=== PATIENT | female | born 1995 | race Caucasian/White ===

== ENCOUNTER 2017-03-22 01:48 | Emergency (ER) | payer BC ==
[~2017-03-22] VITALS: Ht 154.9 cm; Wt 90.9 kg
[~2017-03-22 01:48] MED LIST: AMOXICILLIN 50500 MG PO; CLEOCIN HC150 MG/CAP PO; NO HOME MEDICATIONS
[2017-03-22 01:53] VITALS: BP 146/86; PULSE 89
[2017-03-22] MEDS ORDERED: BACTRIM DS 8001 TAB PO (02:16)
[2017-03-22 03:03] VITALS: TEMP 97.6
== END 2017-03-22 03:03 | disposition home or self-care (01) ==
LOC: COL.ER 01:48
DX: L03.90 Cellulitis, unspecified (principal)
CPT/HCPCS: J0696

== ENCOUNTER 2017-04-23 05:50 | Emergency (ER) | payer BC ==
[~2017-04-23] VITALS: Ht 160 cm; Wt 88.0 kg
[~2017-04-23 05:50] MED LIST changes: +BACTRIM DS 8001 TAB PO
[2017-04-23 07:41] LABS: BASO # 0.1 (0.0-0.2); BASO % 0.9 % (0.0-2.0); EOS % 0.4 % (0-4.0); GRAN # 3.1 (1.4-6.5); GRAN % 57.3 % (42.2-75.2); HEMATOCRIT 43.1 % (37.0-47.0); HEMOGLOBIN 14.6 g/dl (12.5-16.0); LYMPH # 1.7 (1.2-3.4); LYMPH % 31.9 % (20.0-51.0); MEAN CELL VOLUME 87 fl (80.0-100.0); MEAN CORPUSCULAR HEMOGLOBIN 29 pg (27.0-31.0); MEAN CORPUSCULAR HGB CONC 34 g/dl (33.0-37.0); MEAN PLATELET VOLUME 10.3 fl (7.4-10.4); MONO # 0.5 (0.1-0.6); MONO % 9.3 % (1.7-9.3); PLATELET COUNT 277 K/mm3 (130-400); RED BLOOD COUNT 4.98 M/mm3 (4.10-5.30); REDCELL DISTRIBUTION WIDTH-CV 12.5 % (11.5-14.5)
[2017-04-23 07:44] LABS: COLLECTION METHOD CLEAN CATCH
[2017-04-23 07:50] LABS: ALANINE AMINOTRANSFERASE 31 U/L (9-52); ALBUMIN 5.2 gm/dL (3.5-5.0); ALCOHOL(ethanol),MEDICAL 62 mg/dL; ALKALINE PHOSPHATASE 100 U/L (50-136); ANION GAP 15 mmol/L (7-16); AST,SGOT 20 U/L (15-37); BILIRUBIN,TOTAL 0.3 mg/dL (0.0-1.0); BLOOD UREA NITROGEN 11 mg/dL (7-17); CALCIUM 9.4 mg/dL (8.4-10.2); CARBON DIOXIDE 22 mmol/L (22-30); CHLORIDE 105 mmol/L (98-107); CREATININE, serum 0.59 mg/dL (0.52-1.25); GLUCOSE 109 mg/dL (74-106); MAGNESIUM 2.2 mg/dL (1.6-2.3); PHOSPHOROUS 3.3 mg/dL (2.5-4.5); POTASSIUM 3.6 mmol/L (3.4-5.0); SALICYLATE 3.5 mg/dL; SODIUM 142 mmol/L (137-145); TOTAL PROTEIN 8.5 gm/dL (6.4-8.2)
[2017-04-23 07:51] LABS: ACETAMINOPHEN < 10 ug/mL (10-30)
[2017-04-23 07:52] LABS: MUCOUS Present /lpf; PH 5 (5-8); URINE APPEARANCE Hazy; URINE BACTERIA None Seen /hpf; URINE BILIRUBIN Negative (NEGATIVE); URINE BLOOD Negative (NEGATIVE); URINE COLOR Yellow; URINE GLUCOSE Negative (NEGATIVE); URINE KETONE 1+ (NEGATIVE); URINE LEUKOCYTE ESTERASE Negative (NEGATIVE); URINE NITRATE Negative (NEGATIVE); URINE PROTEIN(semi-quant) 3+ (NEGATIVE); URINE RBC None Seen /hpf; URINE UROBILINOGEN Negative (NEGATIVE)
[2017-04-23 08:45] LABS: TRICYCLIC ANTIDEPRESS URINE NEGATIVE
[2017-04-23 09:13] VITALS: TEMP 97.4
[2017-04-23 10:00] VITALS: BP 146/89; PULSE 99
[2017-04-24] MEDS ORDERED: CEPHALEXIN500 M1 PO (11:01)
[2017-04-24] MEDS ORDERED: DOXYCYCLINE 10100 MG PO (11:01)
[2017-04-24] MEDS ORDERED: NORCO 325 MG-51 TAB PO (11:01)
== END 2017-04-23 10:08 | disposition home or self-care (01) ==
LOC: COL.ER 05:50
PROVIDERS: Emergency Medicine
DX: S61.512A Laceration without foreign body of left wrist, initial encounter (principal); F32.9 Major depressive disorder, single episode, unspecified; Z23 Encounter for immunization; X78.9XXA Intentional self-harm by unspecified sharp object, initial encounter

== ENCOUNTER 2017-04-24 09:39 | Emergency (ER) | payer BC ==
[~2017-04-24] VITALS: Ht 154.9 cm; Wt 87.7 kg
[2017-04-24 09:55] VITALS: BP 128/69; PULSE 83; TEMP 98.1
[2017-04-24] MEDS ORDERED: DOXYCYCLINE 10100 MG PO (11:01)
[2017-04-24] MEDS ORDERED: NORCO 325 MG-51 TAB PO (11:01)
[2017-04-24] MEDS ORDERED: CEPHALEXIN500 M1 PO (11:01)
== END 2017-04-24 12:03 | disposition home or self-care (01) ==
LOC: COL.ER 09:39
DX: S51.812D Laceration without foreign body of left forearm, subsequent encounter (principal)
CPT/HCPCS: J1170; J1885; J2550

== ENCOUNTER 2017-05-06 09:33 | Emergency (ER) | payer BC ==
[~2017-05-06 09:33] MED LIST changes: +CEPHALEXIN500 M1 PO; +DOXYCYCLINE 10100 MG PO; +NORCO 325 MG-51 TAB PO
[2017-05-06 09:42] VITALS: BP 132/80; PULSE 79; TEMP 98
== END 2017-05-06 09:50 | disposition home or self-care (01) ==
LOC: COL.ER 09:33
DX: S61.512D Laceration without foreign body of left wrist, subsequent encounter (principal)

== ENCOUNTER 2017-10-13 11:13 | Emergency (ER) | payer BC ==
[~2017-10-13] VITALS: Ht 157.5 cm; Wt 93.1 kg
[2017-10-13 11:18] VITALS: TEMP 98.8
[2017-10-13 11:59] LABS: BASO % 0.3 % (0.0-2.0); EOS % 0.1 % (0-4.0); GRAN # 7.9 (1.4-6.5); GRAN % 75.2 % (42.2-75.2); HEMATOCRIT 43.3 % (37.0-47.0); HEMOGLOBIN 14.8 g/dl (12.5-16.0); LYMPH # 1.9 (1.2-3.4); LYMPH % 18.5 % (20.0-51.0); MEAN CELL VOLUME 84 fl (80.0-100.0); MEAN CORPUSCULAR HEMOGLOBIN 29 pg (27.0-31.0); MEAN CORPUSCULAR HGB CONC 34 g/dl (33.0-37.0); MEAN PLATELET VOLUME 10.2 fl (7.4-10.4); MONO # 0.6 (0.1-0.6); MONO % 5.4 % (1.7-9.3); PLATELET COUNT 327 K/mm3 (130-400); RED BLOOD COUNT 5.13 M/mm3 (4.10-5.30); REDCELL DISTRIBUTION WIDTH-CV 12.4 % (11.5-14.5)
[2017-10-13 12:09] LABS: CALCIUM 9.7 mg/dL (8.4-10.2); CREATININE, serum 0.64 mg/dL (0.52-1.25); POTASSIUM 3.8 mmol/L (3.4-5.0)
[2017-10-13 12:51] LABS: COLLECTION METHOD CLEAN CATCH
[2017-10-13 13:08] LABS: BUDDING YEAST Present /hpf; MUCOUS Present /lpf; PH 5 (5-8); URINE APPEARANCE Cloudy; URINE BACTERIA None Seen /hpf; URINE BILIRUBIN Negative (NEGATIVE); URINE BLOOD Negative (NEGATIVE); URINE COLOR Yellow; URINE GLUCOSE Negative (NEGATIVE); URINE KETONE 1+ (NEGATIVE); URINE LEUKOCYTE ESTERASE Negative (NEGATIVE); URINE NITRATE Negative (NEGATIVE); URINE PROTEIN(semi-quant) 2+ (NEGATIVE); URINE RBC 0-2 /hpf; URINE UROBILINOGEN Negative (NEGATIVE)
[2017-10-13 13:32] VITALS: BP 122/74; PULSE 69
== END 2017-10-13 13:40 | disposition home or self-care (01) ==
LOC: COL.ER 11:13
PROVIDERS: Physician Assistant
DX: R11.10 Vomiting, unspecified (principal)
CPT/HCPCS: J2405; J7030

== ENCOUNTER 2018-06-09 20:19 | Emergency (ER) | payer BC ==
[~2018-06-09] VITALS: Ht 157.5 cm; Wt 90.9 kg
[2018-06-09 20:34] VITALS: BP 158/90; TEMP 99.3
[2018-06-09] MEDS ORDERED: ZITHROMAX Z PA250 MG PO (21:18)
[2018-06-09 21:40] VITALS: PULSE 75
[2018-06-10] MEDS ORDERED: PROAIR HFA0.09 MG/AC IH (15:47)
[2018-06-10] MEDS ORDERED: PREDNISONE10 MG PO ×2 (15:47)
[2018-06-10] MEDS ORDERED: MEDROL 4MG DOSPA4 MG PO (15:53)
== END 2018-06-09 21:40 | disposition home or self-care (01) ==
LOC: COL.ER 20:19
DX: J06.9 Acute upper respiratory infection, unspecified (principal)

== ENCOUNTER 2018-06-10 14:49 | Emergency (ER) | payer BC ==
[~2018-06-10] VITALS: Ht 157.5 cm; Wt 97.1 kg
[~2018-06-10 14:49] MED LIST changes: +ZITHROMAX Z PA250 MG PO
[2018-06-10 14:52] VITALS: TEMP 99.1
[2018-06-10] MEDS ORDERED: PROAIR HFA0.09 MG/AC IH (15:47)
[2018-06-10] MEDS ORDERED: PREDNISONE10 MG PO ×2 (15:47)
[2018-06-10] MEDS ORDERED: MEDROL 4MG DOSPA4 MG PO (15:53)
[2018-06-10 16:18] VITALS: BP 149/76; PULSE 112
== END 2018-06-10 16:19 | disposition home or self-care (01) ==
LOC: COL.ER 14:49
DX: J45.901 Unspecified asthma with (acute) exacerbation (principal); J20.9 Acute bronchitis, unspecified; F12.90 Cannabis use, unspecified, uncomplicated
CPT/HCPCS: J8540